=== PATIENT | male | born 1990 | race Two or more races ===

== ENCOUNTER 2021-06-19 20:55 | Emergency (ER) | payer SELFPAY ==
[~2021-06-19] VITALS: Ht 172.7 cm; Wt 81.8 kg
[2021-06-19] MEDS ORDERED: LIDOCAINE 5% TRANSDERMAL PATCH TD ONE (22:15)
[2021-06-19] MEDS ORDERED: KETOROLAC TROMETHAMINE 60 MG/2 ML VIAL IM ONE (22:15)
[2021-06-19] MEDS ORDERED: OxyCODONE HCL/ACETAMINOPHEN 5-325 MG TABLET PO ONE (22:15)
[2021-06-19] MEDS ORDERED: DIAZEPAM 5 MG TABLET PO ONE (23:30)
[2021-06-20] MEDS ORDERED: IBUP-2070 PO (00:22)
[2021-06-20] MEDS ORDERED: OXYC-38 PO (00:22)
[2021-06-20] MEDS ORDERED: LIDO700A15 TP (00:22)
[2021-06-20 00:35] VITALS: BP 135/81
[2021-06-21] MEDS ORDERED: METH-812 PO (13:44)
[2021-06-21] MEDS ORDERED: IBUP-1554 PO (13:44)
== END 2021-06-20 00:42 | disposition home or self-care (01) ==
LOC: EDBD → EMS 20:56
DX: M54.50 Low back pain, unspecified (principal); R20.0 Anesthesia of skin
CPT/HCPCS: 72131; 96372; 99284; J1885

== ENCOUNTER 2021-06-21 09:36 | Emergency (ER) | payer MEDICAID ==
[~2021-06-21] VITALS: Ht 172.7 cm; Wt 81.8 kg
[~2021-06-21 09:36] MED LIST: IBUP-2070 PO; LIDO700A15 TP; OXYC-38 PO
[2021-06-21] MEDS ORDERED: MORPHINE SULFATE 4 MG/ML SYRINGE IVP ONE (10:30)
[2021-06-21] MEDS ORDERED: ONDANSETRON HCL 4 MG/2 ML VIAL IVP ONE (10:30)
[2021-06-21] MEDS ORDERED: KETOROLAC TROMETHAMINE 30 MG/ML VIAL IVP ONE (10:30)
[2021-06-21] MEDS ORDERED: SODIUM CHLORIDE 0.9% 1,000 ML IV ONE (10:30)
[2021-06-21 10:51] LABS: HEMATOCRIT 39.3 % (41-53); HEMOGLOBIN 13.2 g/dL (13.5-17.5); MEAN CORPUSCULAR HEMOGLOBIN 26.7 pg (26.0-34.0); MEAN CORPUSCULAR HGB CONC 33.6 G/dL (31.0-37.0); MEAN CORPUSCULAR VOLUME 80 fL (80-100); RED BLOOD CELL COUNT(AUTO) 4.94 MIL/uL (4.50-5.90); RED CELL DISTRIBUTION WIDTH 12.8 % (11.5-14.5)
[2021-06-21 10:52] LABS: BASOPHILS % (AUTO) 0.3 % (0.0-2.0); EOSINOPHILS % (AUTO) 2.7 % (1.0-6.0); LYMPHOCYTES # (AUTO) 1.4 K/uL (1.0-4.8); LYMPHOCYTES % (AUTO) 12.8 % (22.0-44.0); MONOCYTES # (AUTO) 0.7 K/uL (0.1-1.0); MONOCYTES % (AUTO) 6.5 % (2.0-9.0); NEUTROPHILS # (AUTO) 8.4 K/uL (1.8-7.7); NEUTROPHILS % (AUTO) 77.7 % (40.0-70.0); PLATELET COUNT (AUTO) 323 K/uL (150-450)
[2021-06-21 11:00] LABS: ANION GAP 12 mmol/L (8-16); CARBON DIOXIDE 23 mmol/L (22-29); CHLORIDE 101 mmol/L (98-107); GLUCOSE,RANDOM 94 mg/dL (70-110); POTASSIUM 3.6 mmol/L (3.5-5.1); SODIUM SERUM 136 mmol/L (136-145); UREA NITROGEN, BLOOD 8 mg/dL (7-18)
[2021-06-21 11:01] LABS: ALANINE AMINOTRANSFERASE 47 U/L (12-78); ALKALINE PHOSPHATASE 58 U/L (46-116); ASPARTATE AMINOTRANSFERASE 18 U/L (15-37); BILIRUBIN,TOTAL 0.5 mg/dL (0.1-1.0); CALCIUM, TOTAL 9.2 mg/dL (8.8-10.5); CREATININE 0.93 mg/dL (0.60-1.30); GLOMERULAR FILTR. RATE CALC > 60 mL/min (>60); TOTAL PROTEIN, SERUM 7.7 g/dL (6.4-8.2)
[2021-06-21 11:02] LABS: ALBUMIN 3.5 g/dL (3.4-5.0)
[2021-06-21] MEDS ORDERED: METHOCARBAMOL 100 MG/ML 10 ML VIAL IVP ONE (12:30)
[2021-06-21] MEDS ORDERED: METH-812 PO (13:44)
[2021-06-21] MEDS ORDERED: IBUP-1554 PO (13:44)
[2021-06-21 13:57] VITALS: BP 126/67
== END 2021-06-21 14:20 | disposition home or self-care (01) ==
LOC: EMS 09:38
DX: S39.012A Strain of muscle, fascia and tendon of lower back, initial encounter (principal); X58.XXXA Exposure to other specified factors, initial encounter; Y93.89 Activity, other specified; Y92.89 Other specified places as the place of occurrence of the external cause; Y99.8 Other external cause status
CPT/HCPCS: 36415; 74176; 80053; 83605; 85025; 96361; 96374; 96375; 99284; J1885; J2270; J2405; J2800